=== PATIENT | male | born 1955 | race Caucasian/White ===

== ENCOUNTER → 2020-11-17 08:29 | Outpatient (CLI) | payer BC | END | disposition home or self-care (01) | LOC: D.HCCARDIO 08:29 → D.HCCECHO 10:00 | PROVIDERS: ATTEND Internal Medicine Interventional Cardiology | DX: I20.9 Angina pectoris, unspecified (principal); R07.9 Chest pain, unspecified ==

== ENCOUNTER 2020-11-24 10:56 | Day surgery (SDC) | payer BC ==
[~2020-11-24] VITALS: Ht 180.3 cm; Wt 104.5 kg
--- NOTE | ~2020-11-24 | HEMODYNAMI ---
PATIENT:CAROL ROWAN MEDICAL RECORD: [id number] : 59 LOCATION:[facility] ADMISSION DATE: 11/24/20 Generatedon:113:50 Patient name: CAROL ROWAN Patient #: [id number] : 1955 Date of study: 11/24/2020 Page: Of Hemodynamic Procedure Report Patient Data Patient Demographics Procedure consent was obtained First Name: CAROL Gender: Male Last Name: ANUM : 1955 Patient #: [id number] Age: 65 year(s) Race: SSN: [id number] Additional ID: [id number] Contact details [address]: [address] [place] [address] State: [place] City: [place] Zip code: [address] Admission Admission Data Admission Date: 11/24/2020 Admission Time: 10:56 Arrival Date: 11/24/2020 Arrival Time: 13:00 Admit Source: Other Insurance Payor: Private health insurance [facility] #: [id number] Height (in.): 70.87 BSA: 2.23 (m2) Height (cm.): 180 BMI: 32.1 (kg/m2) Weight (lbs.): 229.28 Weight (kg.): 104 Lab Results Lab Result Date: 11/24/2020 Lab Result Time: 0:00 Biochemistry Name Units Result Min Max BUN mg/dl 17 --(---*)-- 7 18 Creatinine mg/dl 1 --(--*-)-- 0.6 1.3 CBC Name Units Result Min Max Hemoglobin g/dl 16.8 --(---*)-- 13.5 17.5 Procedure Procedure Types Cath Procedure Diagnostic Procedure [facility] w/Coronaries FFR/IVUS FFR Initial Sedation Charges Moderate Sedation 25-39 minutes Procedure Description Procedure Date Procedure Date: 11/24/2020 Procedure Start Time: 13:19 Procedure End Time: 13:44 Procedure Staff Name Function Osmin Beavers MD Performing Physician Sima Suarez RT Monitor Jordyn Chaney RT Scrub Allan Choudhury RN Nurse Procedure Data Cath Procedure Fluoroscopy Diagnostic fluoroscopy Total fluoroscopy Time: 3.3 time: 3.3 min min Diagnostic fluoroscopy Total fluoroscopy dose: 559 dose: 559 mGy mGy Contrast Material Contrast Material Type Amount (ml) Isovue 300 59 Entry Location Entry Primary Successful Side Size Upsize Upsize Entry Closure Succes sful Closure Location (Fr) 1 (Fr) 2 (Fr) Remarks Device Remarks Femoral Right 5 Fr Exoseal artery Estimated blood loss: 5 ml Diagnostic catheters Device Type Used For End Catheter Placement MULTIPACK JL 4.0 5Fr Left Coronary catheter Angiography MULTIPACK 3DRC 5Fr Right Coronary catheter Angiography MULTIPACK Pigtail 5 Fr LV Angiography catheter Procedure Medications Medication Administration Route Dosage Oxygen etCO2 Nasal cannula 2 l/min Lidocaine 2% added to field 20 Heparin Flush Bag added to field 2 bags (1000units/500ml NS) 0.9% NaCl I.V. 100 ml/hr Versed I.V. 1 mg Fentanyl I.V. 50 mcg Versed I.V. 0.5 mg Fentanyl I.V. 25 mcg Versed I.V. 0.5 mg Fentanyl I.V. 25 mcg Heparin Bolus I.V. 5000 units Hemodynamics Rest BSA: 2.23 (m2) HGB: 16.8 (g/dl) O2 Consumption: Estimated: 257.36 (ml/min) O2 Co nsumption indexed: Estimated:115.41 (ml/min/m) Heart Rate: 66 (bpm) Pressure Samples Time Site Value (mmHg) Purpose Heart Use Rate(bpm) 13:29 LV 96/2,19 Snapshot 67 Gradients Valve Time Site Site Mean SEP/DFP Peak To Heart Use 1 2 (mmHg) (sec/min) Peak Rate (mmHg) (bpm) Aortic 13:30 LV AO 67 Snapshots Pre Cath Intra NCS Post Cath Vital Signs Time Heart Resp SPO2 etCO2 NIBP (mmHg) Rhythm Pain Sedation Rate (ipm) (%) (mmHg) Status Level (bpm) 13:06:50 65 18 99 0 145/80(112) NSR 0 (11) 10(A) , No pain 13:11:08 68 17 100 30.1 135/74(98) NSR 0 (11) 10(A) , No pain 13:15:20 64 16 98 27.9 117/74(88) NSR 0 (11) 10(A) , No pain 13:19:34 62 12 98 32.4 110/70(82) NSR 0 (11) 9(A) , No pain 13:23:46 60 11 98 30.1 108/70(85) NSR 0 (11) 9(A) , No pain 13:27:56 69 12 98 25.6 118/72(86) NSR 0 (11) 9(A) , No pain 13:32:10 66 13 98 26.3 125/73(95) NSR 0 (11) 9(A) , No pain 13:36:24 65 15 98 27.1 113/69(80) NSR 0 (11) 9(A) , No pain 13:40:36 65 14 98 26.3 107/68(82) NSR 0 (11) 9(A) , No pain 13:44:48 64 16 99 34.6 114/70(87) NSR 0 (11) 10(A) , No pain Medications Time Medication Route Dose Verified Delivered Reason Notes Effectiveness by by 13:04:39 Oxygen etCO2 2 Osmin Allan used for Nasal l/min Nimesh Choudhury RN procedure cannula 13:04:46 Lidocaine 2% added 20ml Osmin Allan for local to vial Nimesh Choudhury RN anesthetic field 13:05:02 Heparin Flush added 2 Osmin Osmin used for Bag to bags Nimesh Beavers MD procedure (1000units/500ml field NS) 13:05:14 0.9% NaCl I.V. 100 Osmin Allan Per physician ml/hr Nimesh Choudhury RN 13:10:11 Versed I.V. 1 mg Osmin Allan for sedation Nimesh Choudhury RN 13:10:17 Fentanyl I.V. 50 Osmin Allan for sedation mcg Nimesh Choudhury RN 13:15:25 Versed I.V. 0.5 Osmin Allan for sedation mg Nimesh Choudhury RN 13:15:28 Fentanyl I.V. 25 Osmin Allan for sedation mcg Nimesh Choudhury RN 13:18:19 Versed I.V. 0.5 Osmin Allan for sedation mg Nimesh Choudhury RN 13:18:22 Fentanyl I.V. 25 Osmin Allan for sedation mcg Nimesh Choudhury RN 13:34:49 Heparin Bolus I.V. 5000 Osmin Lemus for units Nimesh Choudhury RN anticoagulation Procedure Log Time Note 12:40:57 Informed consent obtained and on chart 12:42:22 Arrival Date: 11/24/2020 1:00:00 PM 12:42:43 Admit Source: Other 12:42:45 Insurance Payor : Private health insurance 12:43:42 Patient Height : 70.87 inches 12:43:45 Patient Weight : 229.28 lbs 12:45:54 Lab Result : Creatinine 1 mg/dl 12:45:54 Lab Result : BUN 17 mg/dl 12:45:54 Lab Result : Hemoglobin 16.8 g/dl 12:46:00 Diagnostic Cath Status : Elective 12:47:08 Procedure Status Elective Heart Cath (OP). 12:47:20 Allan Choudhury RN sent for patient. Start room use. 12:47:32 Time tracking: Regular hours (M-F 7:00 - 5:00) 12:47:38 Plan of Care:Hemodynamics will remain stable., Cardiac rhythm will remain stable., Comfort level will be maintained., Respiratory function will remain adequate., Patient/ family verbilizes understanding of procedure., Procedure tolerated without complication., Recovers from procedure without complications.. 13:01:13 Patient received from Pre/Post Procedure Room to CCL 1 Alert and oriented. Tansferred to table in Supine position. 13:01:14 Warm blankets applied, and nancy hugger turned on for patient comfort. 13:01:15 Correct patient and procedure confirmed by team. 13:01:15 ECG and BP/O2 sat monitors applied to patient. 13:04:39 Oxygen 2 l/min etCO2 Nasal cannula was administered by Allan Choudhury RN; used for procedure; Verbal order read back and verified. 13:04:46 Lidocaine 2% 20ml vial added to field was administered by Allan Choudhury RN; for local anesthetic; Verbal order read back and verified. 13:05:02 Heparin Flush Bag (1000units/500ml NS) 2 bags added to field was administered by Osmin Beavers MD; used for procedure; Verbal order read back and verified. 13:05:14 0.9% NaCl 100 ml/hr I.V. was administered by Allan Kei RN; Per physician; Verbal order read back and verified. 13:05:39 Vital chart was started 13:07:56 Baseline sample Acquired. 13:08:01 Rhythm: sinus rhythm 13:08:03 Full Disclosure recording started 13:08:13 H&P Date Dictated: 11/24/2020 Within 30 days and on chart., H&P Addendum completed by physician on day of procedure. (MUST COMPLETE FOR ALL OUTPATIENTS). 13:08:14 Pre-procedure instructions explained to patient. 13:08:14 Pre-op teaching completed and patient verbalized understanding. 13:08:17 Family in patients room. 13:08:18 Patient NPO since Midnight. 13:08:23 Is the patient allergic to Iodine/contrast media? No. 13:08:24 Was the patient premedicated? Yes 13:08:25 Is patient on blood thinner?Yes 13:08:28 ACC The patient was administered the following blood thiners within the last 24 hours: ACCPlavix 13:08:31 Patient diabetic? Yes. 13:08:31 If diabetic: On Metformin? Yes 13:08:34 If on Metformin: Last Dose? 11/22/2020 13:08:43 Previous problem with sedation/anesthesia? No ? 13:08:46 Snore? Yes 13:08:59 Sleep apnea? Yes 13:09:00 Deviated septum? No 13:09:01 Opens mouth fully? Yes 13:09:02 Sticks out tongue? Yes 13:09:03 Airway obstruction? No ? 13:09:07 Dentures? No ? 13:09:11 Pre procedure: right dorsailis pedis pulse 2+ Normal; easily identifiable; not easily obliterated 13:09:12 Pre procedure: left dorsailis pedis pulse 2+ Normal; easily identifiable; not easily obliterated 13:09:14 Patient pain scale 0/10 ?. 13:09:21 IV patent on arrival in left forearm with 0.9% NaCl at [facility]. 13:09:23 Lab results completed and on chart. 13:09:36 Stress Test: yes; abnormal inferior and apical 13:09:41 Right groin area was prepped with chlora-prep and draped in sterile fashion 13:09:43 Alarms reviewed by R. N. 13:09:44 Sharps counted by scrub and verified by RJaniceN. 13:09:47 Physician arrived 13:09:48 --------ALL STOP TIME OUT------ 13:09:48 Final Timeout: patient, procedure, and site verified with staff and physician. All members of the team are in agreement. 13:09:50 Right groin site verified by team. 13:09:54 Fire Safety Assessment: A--An alcohol-based skin anteseptic being used preoperatively., C--Open oxygen or nitrous oxide is being used., D--An ESU, laser, or fiber-optic light is being used. 13:09:58 Physical assessment completed. ASA score P 2 - A patient with mild systemic disease as per Osmin Beavers MD. 13:10:03 Sedation plan: IV Moderate Sedation Medication:Versed, Fentanyl 13:10:11 Versed 1 mg I.V. was administered by Allan Choudhury RN; for sedation; Verbal order read back and verified. 13:10:17 Fentanyl 50 mcg I.V. was administered by Allan Choudhury RN; for sedation; Verbal order read back and verified. 13:11:00 2) 60-89 Mildly reduced kidney function, and other findings (as for stage 1) point to kidney disease. 13:13:09 Risk of Mortality: 0.1 13:13:13 Risk of blood transfusion: 0.1 13:13:16 Risk of HUNG: 0.1 13:13:20 Use device set Femoral Dx 13:13:22 ACIST Syringe (48628) opened to sterile field. 13:13:22 Bag Decanter (2002S) opened to sterile field. 13:13:22 Medline Cath Pack ([id number]) opened to sterile field. 13:13:24 ACIST Hand Control (40276) opened to sterile field. 13:13:24 ACIST Manifold (21934) opened to sterile field. 13:13:25 DIAGNOSTIC Multipack 5Fr catheter set (GH2470) opened to sterile field. 13:13:25 Tegaderm 4 x 4 (1626W) opened to sterile field. 13:13:26 SHEATH 5FR [place] (BBT007) opened to sterile field. 13:13:26 EMERALD Guide Wire (116-666) opened to sterile field. 13:15:25 Versed 0.5 mg I.V. was administered by Allan Choudhury RN; for sedation; Verbal order read back and verified. 13:15:28 Fentanyl 25 mcg I.V. was administered by Allan Choudhury RN; for sedation; Verbal order read back and verified. 13:18:07 Procedure started. 13:18:19 Versed 0.5 mg I.V. was administered by Allan Choudhury RN; for sedation; Verbal order read back and verified. 13:18: Fentanyl 25 mcg I.V. was administered by Allan Choudhury RN; for sedation; Verbal order read back and verified. 13:19:16 Local anesthetic to right femoral artery with Lidocaine 2% by Osmin Beavers MD.INITIAL ACCESS ONLY 13:19:47 A 5 Fr sheath was inserted into the Right Femoral artery 13:22:20 A MULTIPACK JL 4.0 5Fr catheter was advanced over the wire and used for Left Coronary Angiography. 13:25:00 LCA angiography performed. 13:25:03 Injector settings: Ml/sec: 3, Volume: 6, 13:25:54 Catheter removed. 13:26:00 A MULTIPACK 3DRC 5Fr catheter was advanced over the wire and used for Right Coronary Angiography. 13:26:04 RCA angiography performed. 13:26:07 Injector settings: Ml/sec: 3, Volume: 6, 13:27:53 Catheter removed. 13:27:59 A MULTIPACK Pigtail 5 Fr catheter was advanced over the wire and used for LV Angiography. 13:29:26 LV hemodynamics recorded. 13:29:27 LV gram done using MARIN 13:29:30 Injector settings: Ml/sec: 5, Volume: 15, 13:30:10 EF : 55 % 13:31:03 Catheter removed. 13:31:04 Proceeding to intervention. 13:34:16 [place] OmniWire (35789) opened to sterile field. 13:34:16 INFLATOR Merit BasixCompak (DA6810) opened to sterile field. 13:34:17 GUIDE 5FR EBU 3.5 catheter ([id number]) opened to sterile field. 13:34:24 ACC Pre-intervention BRET Flow is 3. 13:34:32 5 Fr ebu 3.5 guide catheter was inserted over the wire 13:34:37 Pressure wire advanced. 13:34:49 Heparin Bolus 5000 units I.V. was administered by Allan Choudhury RN; for anticoagulation; Verbal order read back and verified. 13:38:22 Wire advanced across lesion. 13:38:28 Baseline FFR 1. 13:38:37 pCirc lesion measured at 0.97 with IFR 13:39:58 EXOSEAL 5Fr (EX500) opened to sterile field. 13:40:18 Wire removed. 13:40:40 Catheter removed. unable to cannulate vessel. 13:41:19 Sheath removed intact; hemostasis achieved with Exoseal to the Right Femoral artery. 13:41:21 Procedure ended.(Physican Out) 13:41:31 Fluoroscopy time 03.30 minutes. 13:41:35 Fluoroscopy dose: 559 mGy 13:41:35 Flurop Dose total: 559 13:41:40 Dose Area Product 65954 mGy/cm. 13:41:56 Contrast amount:Isovue 300 59ml. 13:42:18 Maximum allowable dose exceeded? No. 13:42:19 Sharps counted by scrub and verified by R.N. 13:42:21 Insertion/operative site no bleeding no hematoma. 13:42:23 Post-op/insertion site Right Femoral artery dressed using a 4 x 4 and Tegaderm. 13:42:26 Post right femoral artery:stable 13:42:28 Post Procedure Pulses reassessed and unchanged 13:42:31 Post procedure rhythm: unchanged. 13:42:33 Estimated blood loss: 5 ml 13:42:35 Post procedure instruction explained to patient.Patient verbalizes understanding. 13:42:35 Patient needs reinforcement of post procedure teaching. 13:43:18 Procedure type changed to Cath procedure, Diagnostic procedure, [facility], [facility] w/Coronaries, FFR/IVUS, FFR Initial, Sedation Charges, Moderate Sedation 25-39 minutes 13:43:20 Procedure and supply charges have been captured, reviewed, submitted and are correct. 13:44:01 Vital chart was stopped 13:44:04 [facility] Findings: MVD- CABG consult 13:44:06 Operative report dictated upon procedure completion. 13:44:06 See physician's report for complete and final results. 13:44:08 Report given to Pre/Post Procedure Room. 13:44:11 Patient transfered to Pre/Post Procedure Room with Stretcher. 13:44:13 Procedure ended. 13:44:13 Full Disclosure recording stopped 13:44:18 End room use (Document Last) 13:45:14 End room use (Document Last) 13:46:03 End room use (Document Last) 13:47:20 ACT drawn and resulted at 309 seconds. (normal therapeutic range 180-240 seconds). Device Usage Item Name Manufacture Quantity Catalog Hospital Part Current Minimal L ot# / Number Charge Number Stock Stock Serial# Code ACIST Acist 1 49602 146410 703509 857839 20 Syringe Medical (34095) Systems Inc Bag Microtek 1 662575 07802 632355 5 Decanter Medical Inc. () Medline Medline 1 [id number] 498859 23416 266288 5 Cath Pack ([id number]) ACIST Hand Acist 1 74468 969889 249270 305198 5 Control Medical (15956) Systems Inc ACIST Acist 1 26110 725842 041721 982386 5 Manifold Medical (10082) Systems Inc DIAGNOSTIC Cardinal 1 SR7835 737345 72427 500219 30 MultipCinnaBid 5Fr catheter set (GD0421) Tegaderm 4 3M 1 1626W 213990 197307 801507 5 x 4 (1626W) SHEATH 5FR Terumo 1 IXS133 317863 122794 272960 5 [place] (XMD230) EMERALD Cardinal 1 502-455 568372 709443 263675 5 Guide Wire [facility] (502-455) MULTIPACK Cardinal 1 899603 5 JL 4.0 5Fr Health catheter MULTIPACK Cardinal 1 787549 5 3DRC 5Fr Health catheter MULTIPACK Cardinal 1 290615 5 Pigtail 5 Health Fr catheter Vaiden Vaiden 1 4121695 811100 36399 9925 5 OmniWire (20872) INFLATOR Merit 1 OO2343 077887 648354 127219 15 [employer] Medical BasixCompak (RE8618) GUIDE 5FR Medtronic 1 [id number] 988213 539001 805190 1 EBU 3.5 catheter (KR3AXQ57) EXOSEAL 5Fr Cardinal 1 EX500 257467 206220 960666 10 (EX500) Health Signature Audit Mcgrew Stage Time Signature Unsigned Intra-Procedure 11/24/2020 Sima Suarez 1:45:14 PM RT(R) Intra-Procedure 11/24/2020 Allan Choudhury RN 1:46:03 PM Intra-Procedure 11/24/2020 Osmin Beavesr MD 1:49:59 PM [place] [id number] [place] [address]
[2020-11-24] MEDS ORDERED: TOPROL XL100 MG PO (11:07)
[2020-11-24] MEDS ORDERED: PLAVIX75 MG PO (11:08)
[2020-11-24] MEDS ORDERED: LIPITOR40 MG PO (11:08)
[2020-11-24] MEDS ORDERED: COZAAR100 MG PO (11:12)
[2020-11-24] MEDS ORDERED: ATIVAN1 MG PO (11:12)
[2020-11-24] MEDS ORDERED: HCTZ25 MG PO (11:12)
[2020-11-24] MEDS ORDERED: OMEPRAZOLE20 M1 PO (11:12)
[2020-11-24] MEDS ORDERED: GLUCOPHAGE500 MG PO (11:13)
[2020-11-24 11:37] VITALS: BP 118/69; Ht 180.3 cm; Wt 104.5 kg
[2020-11-24 11:46] LABS: BASOPHILS 0.9 % (0-2); EOSINOPHILS 4.8 % (0-7); HEMATOCRIT 47.8 % (42.0-54.0); HEMOGLOBIN 16.8 g/dL (13.5-17.5); LYMPHOCYTES 37.9 % (15-50); MCH 32.3 pg (26.0-34.0); MCHC 35.2 g/dL (31.0-37.0); MCV 91.7 fL (80.0-100.0); MEAN PLATELET VOLUME 8.2 fL (7.4-10.4); NEUTROPHILS 49.4 % (40-80); PLATELET COUNT 200 10x3/uL (130-400); RBC 5.21 10x6/uL (4.20-6.10); RDW 13.2 % (11.5-14.5); WBC 6.4 10x3/uL (4.8-10.8)
[2020-11-24 11:52] LABS: ALT (SGPT) 57 U/L (10-68); CALC OSMOLALITY 283 mosm/kg (275-300); CHLORIDE - SERUM 100 mmol/L (98-107); CHOL - HDL RATIO 4.2 ratio (2.3-4.9); CHOLESTEROL, TOTAL 147 mg/dL (0-200); GLUCOSE 287 mg/dL (74-106); HDL CHOLESTEROL 35 mg/dL (32-96); LDL CHOLESTEROL 86 mg/dL (0-100); LDL-HDL RATIO 2.5 ratio (1.5-3.5); POTASSIUM - SERUM 3.9 mmol/L (3.5-5.1); SODIUM 136 mmol/L (136-145); TRIGLYCERIDE 130 mg/dL (30-200); UREA NITROGEN 17 mg/dL (7-18); eGFR NON AFRICAN AMERICAN 80 mL/min (90-120)
--- NOTE | 2020-11-24 13:57 | NUR ---
PT REC'D TO CATH RECOVERY ROOM 4 VIA STRETCHER. MONITORS ESTAB. AT BS. SEE HORSERADISH GRINDER FLOWSHEETS. ALARMS ON AND C/L IN REACH.
--- NOTE | 2020-11-24 14:15 | NUR ---
R GROIN EXOSEAL SITE SOFT, NO S/S BLEEDING OR HEMATOMA. R LEG/FOOT WARM WITH PALP PULSES AND BRISK CAP REFILL. VSS. ALARMS ON AND C/L IN REACH.
--- NOTE | 2020-11-24 14:45 | NUR ---
PT RESTING QUIETLY. VSS. R GROIN SITE SOFT, NO S/S BLEEDING OR HEMATOMA. R LEG/FOOT WARM WITH PALP PULSES AND BRISK CAP REFILL. ALARMS ON AND C/L IN REACH.
--- NOTE | 2020-11-24 15:00 | NUR ---
R GROIN SITE SOFT, NO S/S BLEEDING OR HEMATOMA. PULSES PALP. PT AWAKENS EASILY, DENIES PAIN OR NEEDS. AT BS. ALARMS ON AND C/L IN REACH.
--- NOTE | 2020-11-24 15:30 | NUR ---
PT RESTING QUIETLY. VSS. R GROIN SITE C/D/I. NO S/S BLEEDING OR HEMATOMA. PULSES PALP. ALARMS ON AND C/L IN REACH.
--- NOTE | 2020-11-24 16:03 | NUR ---
R GROIN SITE SOFT, NO S/S BLEEDING OR HEMATOMA. PULSES PALP, VSS. HOB ELEVATED. SANDWICH TRAY AND DIET SODA PROVIDED. ALARMS ON AND C/L IN REACH.
--- NOTE | 2020-11-24 16:20 | NUR ---
DR. DELAROSA IN TO SEE PT. SPOKE WITH PT RE: TEST RESULTS, AND OPTIONS PLAN MADE FOR CONSULT WITH DR JACK. I NOTIFIED DR GUERO HOGAN'S NURSE AND APPT SCHEDULED.
--- NOTE | 2020-11-24 16:45 | NUR ---
R GROIN SITES SOFT, NO S/S BLEEDING OR HEMATOMA. PULSES PALP. PIV D/C'D INTACT, DSG APPLIED. PT ALLOWED UP TO GET DRESSED AND GO TO BR INDEPENDENTLY.
--- NOTE | 2020-11-24 17:01 | NUR ---
ALL DISCHARGE INSTRUCTIONS REVIEWED WITH PT AND HIS , INCLUDING RESTRICTIONS, MEDS AND F/U APPT, WITH DR JACK, - BOTH VERBALIZE UNDERSTANDING.
--- NOTE | 2020-11-24 17:09 | NUR ---
PT D/C'D VIA WC TO PRIVATE VEHICLE, HE HAS ALL BELONGINGS AND D/C FOLDER AND FOLDER FOR APPT WITH DR. JACK.
== END 2020-11-24 17:09 | disposition home or self-care (01) ==
LOC: D.CATH 10:56
PROVIDERS: ATTEND Internal Medicine Cardiovascular Disease
DX: I20.8 Other forms of angina pectoris (principal); R94.39 Abnormal result of other cardiovascular function study; R07.9 Chest pain, unspecified; I65.29 Occlusion and stenosis of unspecified carotid artery

== ENCOUNTER 2020-12-07 08:00 | Outpatient (CLI) | payer BC ==
[~2020-12-07 08:00] MED LIST: ATIVAN1 MG PO; COZAAR100 MG PO; GLUCOPHAGE500 MG PO; HCTZ25 MG PO; LIPITOR40 MG PO; OMEPRAZOLE20 M1 PO; PLAVIX75 MG PO; TOPROL XL100 MG PO
[2020-12-07 11:58] LABS: BASOPHILS 0.5 % (0-2); EOSINOPHILS 5.2 % (0-7); HEMATOCRIT 47.3 % (42.0-54.0); HEMOGLOBIN 16.2 g/dL (13.5-17.5); LYMPHOCYTES 29.6 % (15-50); MCH 31.5 pg (26.0-34.0); MCHC 34.2 g/dL (31.0-37.0); MCV 92.1 fL (80.0-100.0); MONOCYTES 6.7 % (2-11); PLATELET COUNT 202 10x3/uL (130-400); RBC 5.14 10x6/uL (4.20-6.10); RDW 13.3 % (11.5-14.5); WBC 7.2 10x3/uL (4.8-10.8)
[2020-12-07] MEDS ORDERED: BAYER CHEWABLE81 MG PO (12:12)
[2020-12-07 12:48] LABS: ALBUMIN 3.8 g/dL (3.4-5.0); ANION GAP 11.6 mmol/L (8-16); BILIRUBIN - TOTAL 0.65 mg/dL (0.2-1.3); CALCIUM 9.1 mg/dL (8.5-10.1); CARBON DIOXIDE 31.7 mmol/L (21.0-32.0); CREATININE - SERUM 1.1 mg/dL (0.6-1.3); PHOSPHOROUS 3.3 mg/dL (2.5-4.9); POTASSIUM - SERUM 4.3 mmol/L (3.5-5.1); PROTEIN - SERUM 6.6 g/dL (6.4-8.2); T4 THYROXIN - FREE 0.97 ng/dL (0.76-1.46); THYROID STIMULATING HORMONE 1.39 uIU/mL (0.36-3.74); URIC ACID 4.4 mg/dL (2.6-7.2)
[2020-12-07 14:59] LABS: BILIRUBIN NEGATIVE (NEGATIVE); KETONE NEGATIVE (NEGATIVE); NITRITE NEGATIVE (NEGATIVE); UROBILINOGEN NORMAL mg/dL (< 2)
[2020-12-15 09:40] VITALS: BMI 32.7
== END 2020-12-07 08:01 | disposition home or self-care (01) ==
LOC: D.PAN 08:00 → EDSTATUS 11:30 → D.US 11:30 → D.MS 12-10 07:30 → EDSTATUS 12-10 11:30 → D.MS 12-10 11:30
PROVIDERS: ATTEND Thoracic Surgery (Cardiothoracic Vascular Surgery)
DX: I25.10 Atherosclerotic heart disease of native coronary artery without angina pectoris (principal); I10 Essential (primary) hypertension; E78.5 Hyperlipidemia, unspecified; E11.9 Type 2 diabetes mellitus without complications

== ENCOUNTER 2020-12-14 05:04 | Inpatient (IN) | payer BC ==
[2020-12-14] VITALS (41 sets, daily range): BP systolic 90–156; BP diastolic 62–86; BMI 31.6
[~2020-12-14] VITALS: Ht 180.3 cm; Wt 107.5 kg
[~2020-12-14 05:04] MED LIST changes: +BAYER CHEWABLE81 MG PO
--- NOTE | 2020-12-14 08:05 | NUR ---
CVL AND ARTERIAL LINE PLACED BY ANESTHESIA, SCD AND STOCKING APPLIED POST OP, SHAYLA.
[2020-12-14 14:25] LABS: BASOPHILS 0.4 % (0-2); EOSINOPHILS 1.2 % (0-7); HEMATOCRIT 43.2 % (42.0-54.0); HEMOGLOBIN 14.9 g/dL (13.5-17.5); LYMPHOCYTES 19.7 % (15-50); MCH 31.7 pg (26.0-34.0); MCHC 34.6 g/dL (31.0-37.0); MCV 91.7 fL (80.0-100.0); MEAN PLATELET VOLUME 8.1 fL (7.4-10.4); MONOCYTES 4.6 % (2-11); NEUTROPHILS 74.1 % (40-80); PLATELET COUNT 216 10x3/uL (130-400); RBC 4.71 10x6/uL (4.20-6.10); RDW 13.5 % (11.5-14.5); WBC 14.3 10x3/uL (4.8-10.8)
[2020-12-14 14:32] LABS: APTT 31.5 SECONDS (22.8-39.4); INR 1.43 (0.85-1.17); PROTIME 16.2 SECONDS (11.6-15.0)
[2020-12-14 14:35] LABS: ALBUMIN 3.1 g/dL (3.4-5.0); ALKALINE PHOSPHATASE 69 U/L (30-120); ALT (SGPT) 43 U/L (10-68); BILIRUBIN - TOTAL 0.65 mg/dL (0.2-1.3); CALC OSMOLALITY 290 mosm/kg (275-300); CALCIUM 7.6 mg/dL (8.5-10.1); CARBON DIOXIDE 24.1 mmol/L (21.0-32.0); CHLORIDE - SERUM 107 mmol/L (98-107); POTASSIUM - SERUM 3.7 mmol/L (3.5-5.1); PROTEIN - SERUM 5.2 g/dL (6.4-8.2); SODIUM 141 mmol/L (136-145); UREA NITROGEN 19 mg/dL (7-18); eGFR NON AFRICAN AMERICAN 80 mL/min (90-120)
[2020-12-14 14:43] LABS: GLUCOSE 248 mg/dL (74-106)
--- NOTE | 2020-12-14 17:18 | NUR ---
ABG'S CALLED TO DR JACK. PT PLACED BACK ON A/C RATE OF 10 ORDERED. 5MEQ KCL GIVEN PER SS.
[2020-12-15] VITALS (62 sets, daily range): BP systolic 111–151; BP diastolic 54–83; Ht 180.3 cm; Wt 107.5 kg
[2020-12-15 05:25] LABS: HEMATOCRIT 43.6 % (42.0-54.0); HEMOGLOBIN 15.1 g/dL (13.5-17.5); MCH 31.9 pg (26.0-34.0); MCHC 34.6 g/dL (31.0-37.0); MCV 92.1 fL (80.0-100.0); MEAN PLATELET VOLUME 8.5 fL (7.4-10.4); RBC 4.74 10x6/uL (4.20-6.10); RDW 13.4 % (11.5-14.5); WBC 14.2 10x3/uL (4.8-10.8)
[2020-12-15 05:46] LABS: ALBUMIN 3.4 g/dL (3.4-5.0); ANION GAP 13.6 mmol/L (8-16); BILIRUBIN - TOTAL 0.33 mg/dL (0.2-1.3); CARBON DIOXIDE 25.9 mmol/L (21.0-32.0); CREATININE - SERUM 1.1 mg/dL (0.6-1.3)
[2020-12-15 05:53] LABS: POTASSIUM - SERUM 3.5 mmol/L (3.5-5.1)
--- NOTE | 2020-12-15 09:00 | NUR ---
ART LINE DCD AND MANDUJANO CATH. LOPRESSOR 12.5 AND TITRATING NITRO DOWN. AM MEDS GIVEN KCL DRAWN AND REPLACED.
--- NOTE | 2020-12-15 15:23 | OP ---
PATIENT NAME: CAROL ROWAN MEDICAL RECORD: [id number] :59 LOCATION:D.CVI DJaniceCV01 ADMISSION DATE:12/14/20 SURGEON: ROBBIN JACK MD DATE OF OPERATION: 12/14/2020 SURGEON: Robbin Jack M.D. PROCEDURE PERFORMED: 1. Coronary artery bypass graft times 4 (left internal mammary artery to LAD, reverse saphenous vein grafts from aorta to second diagonal, aorta to obtuse marginal, aorta to right coronary artery). 2. Endoscopic saphenous vein harvest. PREOPERATIVE DIAGNOSIS: Coronary artery disease. POSTOPERATIVE DIAGNOSIS: Coronary artery disease. ANESTHESIA: General endotracheal anesthesia. ESTIMATED BLOOD LOSS: Total cardiopulmonary bypass with Cell Saver retransfusion. COMPLICATIONS: None. SPECIMENS: None. CONDITION: Stable. DISPOSITION: CV ICU. OPERATIVE FINDINGS: 1. Good quality greater saphenous vein harvested from the left leg. 2. LAD 2.5 mm with diffuse disease. 3. Second diagonal 1.25 mm with proximal plaque. 4. Obtuse marginal 2.0 mm with severe disease. 5. Right coronary artery 2.5 mm with proximal plaque, the PDA vessel was significantly smaller as the acute marginal was the larger vessel off the right. 6. Transesophageal echocardiography at the beginning of the case showed dilated left ventricular cavity 6.7 cm improved to 5.7 cm after separation from cardiopulmonary bypass. OPERATIVE INDICATION: Coronary artery disease. OPERATIVE PROCEDURE IN DETAIL: The patient was brought to the operating suite. General anesthesia was obtained. The patient was prepped and draped. The greater saphenous vein was harvested endoscopically from the patient's left lower extremity utilizing endoscopic technique. Side branch divided with electrocautery. The vessel was ligated proximally and distally and removed. The side branches were tied. Leg was irrigated and closed in 2 layers. Median sternotomy incision was made. Subcutaneous tissue was divided with electrocautery. Sternum was divided with a saw. The left hemisternum was elevated. The pleural cavity was entered. Left internal mammary artery and vein was taken down as a pedicle graft. Sternal retractor was placed. Pericardium was opened. Heparin was given. Aorta was cannulated. Dual-stage OPERATIVE REPORT [id number] CAROL ROWAN venous cannula was inserted. Internal mammary clipped distally and made ready for anastomosis. Activated clotting time was appropriately elevated. The patient was placed on cardiopulmonary bypass. Sites for distal anastomoses were selected. Antegrade cardioplegia cannula was placed. Cardioplegia was given after cooling and the patient was then placed the cross-clamp. Distal anastomoses were performed in a standard technique. Proximal anastomosis with single cross-clamp technique. Aortic root was de-aired by removing the clamp then tying the proximal anastomoses during the vein grafts and restoring the flow. Proximal to the anastomosis sites were inspected for bleeding. Single sutures into the proximal graft lay appropriately. The patient was fully rewarmed, weaned from cardiopulmonary bypass and was stable. The patient was decannulated. Aortic cannulation site was oversewn. Protamine was given. Thorough irrigation was undertaken and hemostasis was ensured. The left chest was evacuated and irrigated. Drains were placed in the mediastinum and left pleural cavity and one with the tip in the right pleural cavity. The Pericardial fat was loosely reapproximated in the midline after placing a ventricular wire. The internal mammary harvest site was hemostatic. Sternum was closed with wires. Fascia was closed. Subcutaneous tissue was closed. Skin was closed. Dermabond was placed. The needle and sponge counts were reported as correct and the patient was taken to the ICU in stable condition. TRANSINT:[id number] Voice Confirmation ID: [id number] DOCUMENT ID: [id number] ROBBIN JACK MD at 1523 CC: FLAKO DELAROSA M.D. and KRISTA RAJPUT APRN [id number] DICTATION DATE: 12/14/201712 TRUCK DRIVING: 12/14/20 2105 ADM IN [facility] [address] [place] [id number]
--- NOTE | 2020-12-15 18:22 | NUR ---
CT TO WATERSEAL ORDERED.
[2020-12-16] VITALS (17 sets, daily range): BP systolic 70–113; BP diastolic 29–73
[2020-12-16 05:46] LABS: HEMATOCRIT 37.7 % (42.0-54.0); HEMOGLOBIN 13.2 g/dL (13.5-17.5); MCH 32.3 pg (26.0-34.0); MCHC 35.1 g/dL (31.0-37.0); MCV 91.9 fL (80.0-100.0); MEAN PLATELET VOLUME 8.3 fL (7.4-10.4); RBC 4.1 10x6/uL (4.20-6.10); RDW 13.6 % (11.5-14.5); WBC 16.5 10x3/uL (4.8-10.8)
[2020-12-16 05:50] LABS: ALBUMIN 3.2 g/dL (3.4-5.0); ANION GAP 12.5 mmol/L (8-16); BILIRUBIN - TOTAL 1.12 mg/dL (0.2-1.3); CALCIUM 8.2 mg/dL (8.5-10.1); CARBON DIOXIDE 27.6 mmol/L (21.0-32.0); POTASSIUM - SERUM 4.1 mmol/L (3.5-5.1); PROTEIN - SERUM 6.2 g/dL (6.4-8.2)
[2020-12-16 05:54] LABS: CREATININE - SERUM 1.4 mg/dL (0.6-1.3)
--- NOTE | 2020-12-16 06:37 | NUR ---
7588 - TEXT MESSAGE SENT TO DR WARREN RE: PATIENT BLOOD GLUCOSE OF 259. ORDER RECEIVED AND CARRIED OUT TO INCREASE TO HIGH SLIDING SCALE FOR INSULIN ADMINISTRATION.
--- NOTE | 2020-12-16 08:07 | EC ---
PATIENT:CAROL ROWAN DATE OF SERVICE: 12/14/20 SEX: M MEDICAL RECORD: [id number] DATE OF : [birth year] LOCATION:[place] [address] AGE OF PATIENT: 65 ADMISSION DATE: 12/14/20 REFERRING PHYSICIAN: INTERPRETING PHYSICIAN: NICOLE YAN MD ECHOCARDIOGRAM REPORT ECHO CHARGES Date: 12/14/20 CLINICAL DIAGNOSIS: ECHOCARDIOGRAPHIC MEASUREMENTS (adult normal given) AC root (d.<3.7cm) cm LV Septum d (<1.2 cm> cm Valve Excursion cm LV Septum (systole) cm Left Atria (s.<4.0cm> cm LVPW d(<1.2cm) cm RV (d.<2.3cm) cm LVPW (sytole) cm LV diastole(<5.6CM) cm MV E-F(>70mm/sec) cm LV systole cm LVOT Diameter cm MV exc.(>10mm) cm Est.ejection fraction (50-75%) % DOPPLER: LVIT cm/sec A cm/sec E cm/sec LA cm/sec RVSP mmHg LVOT cm/sec AOP1/2T m/s Asc. Ao cm/sec RVOT cm/sec RA cm/sec PA cm/sec AV Gradient Peak mmHg AV Mean mmHg AV Area cm MV Gradient Peak mmHg MV Mean mmHg MV Area cm COMMENTS: Recycling Tech: Liv PROCTOR Vending Machine Coin Collector: 3 Dr. Reynoso TAPE# Pericardial Effusion DATE OF SERVICE: INTRAOPERATIVE KORY FINDINGS: Preoperatively shows probable LVH. LV internal dimensions are normal. Wall motion is normal. EF is greater than or equal to 55%. Aortic valve is tricuspid. Good valve excursion. Trivial AI. Left atrium appears normal. Mitral valve appears normal. Mild TR. Postoperatively, normal wall motion and normal wall thickening. EF of 55%. Aortic valve is tricuspid. Good valve excursion. Left atrium appears normal. Mitral valve appears normal. ECHOCARDIOGRAM REPORT [id number] CAROL ROWAN Trivial MR. TRANSINT:[id number] Voice Confirmation ID: [id number] DOCUMENT ID: [id number] NICOLE YAN MD at 0807 CC: [id number] DICTATION DATE: 12/14/20 1508 BROACHER: 12/14/20 1538 ADM IN [facility] [address] [place] [address]
[2020-12-16 16:33] LABS: BILIRUBIN NEGATIVE (NEGATIVE); KETONE TRACE mg/dL (< 1+); NITRITE NEGATIVE (NEGATIVE); PH 5.5 (5.0-8.0); UROBILINOGEN NORMAL mg/dL (< 2); WAXY CAST 2 LPF (0-1); WHITE CELLS - URINE 5 HPF (0-1)
[2020-12-17] VITALS (18 sets, daily range): BP systolic 100–149; BP diastolic 53–77
[2020-12-17 05:37] LABS: HEMATOCRIT 33.9 % (42.0-54.0); HEMOGLOBIN 12.3 g/dL (13.5-17.5); MCH 33.2 pg (26.0-34.0); MCHC 36.3 g/dL (31.0-37.0); MCV 91.5 fL (80.0-100.0); MEAN PLATELET VOLUME 8.1 fL (7.4-10.4); RBC 3.7 10x6/uL (4.20-6.10); RDW 13.3 % (11.5-14.5)
[2020-12-17 05:44] LABS: WBC 10.1 10x3/uL (4.8-10.8)
[2020-12-17 05:48] LABS: ALBUMIN 2.8 g/dL (3.4-5.0); ANION GAP 8.7 mmol/L (8-16); BILIRUBIN - TOTAL 1.05 mg/dL (0.2-1.3); CALCIUM 8.1 mg/dL (8.5-10.1); CARBON DIOXIDE 30.8 mmol/L (21.0-32.0); CREATININE - SERUM 1.3 mg/dL (0.6-1.3); POTASSIUM - SERUM 3.5 mmol/L (3.5-5.1)
--- NOTE | 2020-12-17 08:47 | NUR ---
PT OOB FOR BREAKFAST. INSTRUCTED I.S. PT PULLS 1000 POOR EFFORT. INSTRUCTED SPLINTING WITH HEART PILLOW. INSTRUCTED Q1H. INSULIN GTT INFUSING.
--- NOTE | 2020-12-17 10:52 | NUR ---
Nutrition Follow-up: POD 3 CABG. Ate well this AM. Denies N/V, chewing/swallowing difficulty. -BM; +flatus. Low Glu overnight (POC Glu 28 & 19); insulin adjusted per MD. Diet: Diabetic PO intake: 50-100% Wt: 230# (12/17) Labs noted: Na 134, Glu 137, Ca 8.1, Alb 2.8 Meds noted: Lantus, Protonix, Senokot, Colace, Humulin -Encourage PO intake and honor food preferences within diet restrictions. -Monitor wt. -RD will follow up within 3-4 days.
[2020-12-18] VITALS (22 sets, daily range): BP systolic 86–150; BP diastolic 28–81
[2020-12-18 08:34] LABS: HEMATOCRIT 35.3 % (42.0-54.0); HEMOGLOBIN 12.3 g/dL (13.5-17.5); MCH 32.1 pg (26.0-34.0); MCHC 34.8 g/dL (31.0-37.0); MCV 92.2 fL (80.0-100.0); RBC 3.82 10x6/uL (4.20-6.10); RDW 13.3 % (11.5-14.5); WBC 7.7 10x3/uL (4.8-10.8)
[2020-12-18 08:50] LABS: ALBUMIN 2.9 g/dL (3.4-5.0); ALKALINE PHOSPHATASE 136 U/L (30-120); BILIRUBIN - TOTAL 1.04 mg/dL (0.2-1.3); CALCIUM 8.7 mg/dL (8.5-10.1); CHLORIDE - SERUM 98 mmol/L (98-107); GLUCOSE 151 mg/dL (74-106); PROTEIN - SERUM 6.5 g/dL (6.4-8.2); SODIUM 134 mmol/L (136-145); eGFR NON AFRICAN AMERICAN 80 mL/min (90-120)
[2020-12-18 08:51] LABS: ALT (SGPT) 51 U/L (10-68); CALC OSMOLALITY 273 mosm/kg (275-300); POTASSIUM - SERUM 3.6 mmol/L (3.5-5.1); UREA NITROGEN 20 mg/dL (7-18)
--- NOTE | 2020-12-18 16:36 | NUR ---
1130-DR JACK AT BEDSIDE-PT SUPINE-NAHOMI DRAIN REMOVED AND TOLERATED WELL BY PT-PACER WIRE REMOVED -INSTRUCTED TO MAINTAIN BEDREST UNTIL 1210-PT AGREEABLE 1330-COMPLETE AM CARE DONE AMBULATED IN [place] ON TELEMETRY 1610-FRIEND AT BEDSIDE-PT REQUESTING PAIN MEDICINE AT THIS TIME
--- NOTE | 2020-12-18 16:40 | NUR ---
1500-UPDATE CALLED TO DR JACK-JAZMYN GARCIA AND NOTED
[2020-12-19] VITALS (19 sets, daily range): BP systolic 94–148; BP diastolic 48–87
[2020-12-19 05:14] LABS: ALBUMIN 2.6 g/dL (3.4-5.0); ANION GAP 10.9 mmol/L (8-16); BILIRUBIN - TOTAL 1.06 mg/dL (0.2-1.3); CALCIUM 8.6 mg/dL (8.5-10.1); CARBON DIOXIDE 27.6 mmol/L (21.0-32.0); CREATININE - SERUM 1.1 mg/dL (0.6-1.3); POTASSIUM - SERUM 3.5 mmol/L (3.5-5.1); PROTEIN - SERUM 6.1 g/dL (6.4-8.2)
[2020-12-19 05:24] LABS: HEMATOCRIT 33.9 % (42.0-54.0); HEMOGLOBIN 11.9 g/dL (13.5-17.5); MCH 32.5 pg (26.0-34.0); MCHC 35.1 g/dL (31.0-37.0); MCV 92.3 fL (80.0-100.0); MEAN PLATELET VOLUME 7.5 fL (7.4-10.4); RBC 3.67 10x6/uL (4.20-6.10); RDW 12.9 % (11.5-14.5); WBC 6.1 10x3/uL (4.8-10.8)
--- NOTE | 2020-12-19 16:11 | NUR ---
1000-DR WARREN AT BEDSIDE -SPOKE WITH PT REGARDING DISCHARGE AND DIABETES MANAGEMENT- 1115DR JACK IN UNIT-REVIEWED CHART AND STATUS-DISCUSSED WITH DR WARREN REGARDING BP AND DIABETES MANAGEMENT-DISCHARGE ORDER PLACED ON HOLD 1130-FSBS REPEATED 269 1200-METFORMIN 1000MG PO GIVEN- 1330-FSBS REPEATED 279 1400-INSULIN GTT RESTARTED ORDERED 1430-FSBS REPEATED-INC TO 5 1500-FSBS REPEATED 1600-FSBS REPEATED PT AWAKE AND ALERT-WATCHING TV-REMOVED HEARING AIDS-NOT ABLE TO COMMUNICATE EASILY WITH PT
--- NOTE | 2020-12-19 17:29 | NUR ---
1215-R [facility] 22 G STARTED
[2020-12-20] VITALS (21 sets, daily range): BP systolic 95–161; BP diastolic 57–102
[2020-12-20 04:26] LABS: HEMATOCRIT 34.5 % (42.0-54.0); HEMOGLOBIN 11.7 g/dL (13.5-17.5); MCH 31.5 pg (26.0-34.0); MCV 92.9 fL (80.0-100.0); MEAN PLATELET VOLUME 6.8 fL (7.4-10.4); RBC 3.72 10x6/uL (4.20-6.10); RDW 13.1 % (11.5-14.5); WBC 6.1 10x3/uL (4.8-10.8)
[2020-12-20 04:41] LABS: ALBUMIN 2.6 g/dL (3.4-5.0); ALKALINE PHOSPHATASE 111 U/L (30-120); ALT (SGPT) 47 U/L (10-68); BILIRUBIN - TOTAL 0.64 mg/dL (0.2-1.3); CALCIUM 8.4 mg/dL (8.5-10.1); CHLORIDE - SERUM 102 mmol/L (98-107); GLUCOSE 161 mg/dL (74-106); POTASSIUM - SERUM 3.5 mmol/L (3.5-5.1); PROTEIN - SERUM 5.8 g/dL (6.4-8.2); SODIUM 137 mmol/L (136-145); eGFR NON AFRICAN AMERICAN 80 mL/min (90-120)
[2020-12-20 04:53] LABS: CALC OSMOLALITY 276 mosm/kg (275-300); UREA NITROGEN 13 mg/dL (7-18)
--- NOTE | 2020-12-20 09:55 | NUR ---
Nutrition Follow-up: POD 6 CABG. Eating well. Glu elevated over the weekend. Insulin infusion restarted 12/19. Denies N/V/C/D, chewing/swallowing difficulty. Reports altered taste. Diet: Diabetic PO intake: 50-100% Wt: 236# (12/18) Last BM: 12/19 Labs noted: Glu 161, Ca 8.4, Alb 2.6 Meds noted: Humulin, Glucophage, Lantus, Protonix, Senokot, Colace -Limit to 3 carb choices per meal; specified in diet order. -RD will follow up within 2-3 days.
[2020-12-21] VITALS (14 sets, daily range): BP systolic 99–142; BP diastolic 53–86
[2020-12-21 04:00] LABS: HEMATOCRIT 31.5 % (42.0-54.0); MCH 32.5 pg (26.0-34.0); MCV 93.1 fL (80.0-100.0); MEAN PLATELET VOLUME 6.9 fL (7.4-10.4); RBC 3.39 10x6/uL (4.20-6.10); RDW 13.1 % (11.5-14.5); WBC 7.6 10x3/uL (4.8-10.8)
[2020-12-21 04:16] LABS: ALBUMIN 2.5 g/dL (3.4-5.0); ANION GAP 10.3 mmol/L (8-16); BILIRUBIN - TOTAL 0.6 mg/dL (0.2-1.3); CALCIUM 8.4 mg/dL (8.5-10.1); CARBON DIOXIDE 29.7 mmol/L (21.0-32.0); CREATININE - SERUM 1.1 mg/dL (0.6-1.3); PROTEIN - SERUM 5.7 g/dL (6.4-8.2)
[2020-12-21] MEDS ORDERED: PROTONIX40 MG PO (10:55)
[2020-12-21] MEDS ORDERED: PERCOCET 5-3251 TAB PO ×2 (10:55→12:03)
[2020-12-21] MEDS ORDERED: COZAAR25 MG PO (10:55)
[2020-12-21] MEDS ORDERED: LOPRESSOR25 MG PO (10:55)
[2020-12-21] MEDS ORDERED: AMIODARONE HCL200 MG PO (10:55)
--- NOTE | 2020-12-21 15:06 | NUR ---
PATIENT DISCHARGED HOME WITH AND VERBAL AND WRITTEN INSTURCTION GIVEN. PATIENT IS TO CALL DR. DELAROSA OFFICE TO MAKE APPT. IV DISCONTINUED WITH NO PROBLEMS.
== END 2020-12-21 15:09 | disposition home or self-care (01) | DRG 236 ==
LOC: D.CVICU 05:04 → D.SDCHOLD 05:04 → D.CVICU 13:00
PROVIDERS: Family Medicine; ADMIT Thoracic Surgery (Cardiothoracic Vascular Surgery); ATTEND Thoracic Surgery (Cardiothoracic Vascular Surgery)
PROC: 021209W Bypass Coronary Artery, Three Arteries from Aorta with Autologous Venous Tissue, Open Approach (ICD-10-PCS; 2020-12-14)
PROC: 06BQ4ZZ Excision of Left Saphenous Vein, Percutaneous Endoscopic Approach (ICD-10-PCS; 2020-12-14)
PROC: 5A1221Z Performance of Cardiac Output, Continuous (ICD-10-PCS; 2020-12-14)
PROC: B245ZZ4 Ultrasonography of Left Heart, Transesophageal (ICD-10-PCS; 2020-12-14)
PROC: 02100Z9 Bypass Coronary Artery, One Artery from Left Internal Mammary, Open Approach (ICD-10-PCS; principal; 2020-12-14 07:30)
DX: I25.10 Atherosclerotic heart disease of native coronary artery without angina pectoris (principal); E11.9 Type 2 diabetes mellitus without complications; I10 Essential (primary) hypertension; K21.9 Gastro-esophageal reflux disease without esophagitis; E78.5 Hyperlipidemia, unspecified; Z86.73 Personal history of transient ischemic attack (TIA), and cerebral infarction without residual deficits; Z87.891 Personal history of nicotine dependence